=== PATIENT | male | born 1975 | race African-American/Black ===

== ENCOUNTER 2018-02-22 17:46 | Emergency (ER) | payer OTHER ==
[~2018-02-22] VITALS: Ht 188 cm; Wt 129.3 kg
--- NOTE | ~2018-02-22 | EKG ---
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
[2018-02-22] MEDS ORDERED: METFORMIN HCL500 MG PO (18:05)
[2018-02-22] MEDS ORDERED: NORVASC10 MG PO (18:06)
[2018-02-22 18:28] LABS: ABSOLUTE NEUTROPHILS 3.8 thou/uL (1.4-8.2); EOSINOPHILS 1.6 % (0.0-3.0); HEMATOCRIT 37.8 % (42.0-52.0); HEMOGLOBIN 12.7 gm/dL (14.0-18.0); LYMPHOCYTES 43.3 % (24.0-44.0); MCH 23.4 pg (26.0-34.0); MCHC 33.6 g/dL (28.0-37.0); MCV 69.6 fL (80.0-100.0); MONOCYTES 5.2 % (1.0-8.0); PLATELET COUNT 278 thou/uL (150-400); POLYS 48.9 % (36.0-66.0); RBC 5.43 mil/uL (4.50-6.00); RDW 16.7 % (10.5-14.5); WBC 7.8 thou/uL (4.0-11.0)
[2018-02-22 18:46] LABS: ANION GAP 6 mmol/L (7-16); BUN 12 mg/dL (7-18); CALCIUM 8.9 mg/dL (8.5-10.1); CHLORIDE 106 mmol/L (98-107); CO2 28 mmol/L (21-32); GLUCOSE 119 mg/dL (74-106); POTASSIUM 3.9 mmol/L (3.5-5.1); SODIUM 140 mmol/L (136-145)
[2018-02-22 18:54] LABS: TROPONIN-I <0.06 ng/mL (<0.06)
[2018-02-22 18:55] VITALS: BP 149/92
[2018-02-22 19:16] LABS: ANISOCYTOSIS 1+
[2018-02-22 19:17] LABS: HYPOCHROMASIA 1+; MICROCYTES 2+; POLYCHROMASIA 1+
[2018-02-22] MEDS ORDERED: IBUPROFEN 600600 M1 PO (19:37)
== END 2018-02-22 19:49 | disposition home or self-care (01) ==
LOC: ER 17:46
PROVIDERS: Physician Assistant
DX: R07.89 Other chest pain (principal); E11.9 Type 2 diabetes mellitus without complications; I10 Essential (primary) hypertension; F17.210 Nicotine dependence, cigarettes, uncomplicated; Z88.6 Allergy status to analgesic agent